=== PATIENT | female | born 1990 | race Caucasian/White ===

== ENCOUNTER 2018-08-07 02:30 | Inpatient (IN) ==
[2018-08-07] MEDS ORDERED: Sod Chloride 0.9% Inj 1,000 ML IV.SIG SCH (03:30)
--- NOTE | 2018-08-07 03:30 | ED ---
HPI General Chief Complaint: Psychiatric Symptoms Stated Complaint: Medical Time Seen by Provider: 08/07/18 03:11 Source: EMS Mode of arrival: EMS Limitations: no limitations History of Present Illness HPI Narrative: 27-year-old female presents to the emergency department by EMS transport with law enforcement Vasquez act after drinking alcohol and intentionally taking 15-20 Lorazepam 0.5 mg tablets prior to arrival to the emergency department. Patient admits she wants to kill herself and was trying to commit suicide. Patient also admits she called her boyfriend who just broken up with her to tell him that she had overdosed on the lorazepam. Patient denies other concerns or complaints. complaint: suicidal ideation and feels depressed Onset (ago): hour(s) Duration: constant History of same: Yes Relieving factors: none Exacerbating factors: alcohol and other (break-up with boyfriend) Context: recent alcohol abuse and not taking psychiatric medications Associated psychiatric symptoms: depression Associated symptoms: denies other symptoms Treatments prior to arrival: none If self harm: admits thoughts of self harm, has plan, has acted on plan and intentional overdose Related Data Home Medications Medication Instructions Recorded Confirmed lorazepam 0.5 mg PO HS 08/07/18 08/07/18 Allergies Allergy/AdvReac Type Severity Reaction Status Date / Time No Known Allergies Allergy Unverified 08/07/18 03:14 Review of Systems ROS: all other systems reviewed are negative PMFSH History History Provided By: Patient and Medical Record Medical History Medical History (Acute) Anxiety (Acute) Social History Social History Substance History: No History of Abuse Smoking Status: Never smoker How Often Do You Have a Drink Containing Alcohol: 2 to 3 times a week Recent Travel in [place] within the Last 8 Weeks: No Recent Out of Country Travel within the Last 8 Weeks: No Exam Narrative Exam Narrative: GENERAL: Well-developed well-nourished female no acute distress no respiratory distress SKIN: Focused skin assessment warm/dry. HEAD: Atraumatic. Normocephalic. EYES: Pupils equal and round. No scleral icterus. No injection or drainage. ENT: No nasal bleeding or discharge. Mucous membranes pink and moist. NECK: Trachea midline. No JVD. CARDIOVASCULAR: Regular rate and rhythm. No murmur appreciated. RESPIRATORY: No accessory muscle use. Clear to auscultation. Breath sounds equal bilaterally. GASTROINTESTINAL: Abdomen soft, non-tender, nondistended. Hepatic and splenic margins not palpable. MUSCULOSKELETAL: No obvious deformities. No clubbing. No cyanosis. No edema. NEUROLOGICAL: Awake and alert. No obvious cranial nerve deficits. Motor grossly within normal limits. Normal speech. PSYCHIATRIC: Appropriate mood and affect; insight and judgment normal. Course Initial Documented Vital Signs Temperature 98.0 F 08/07/18 03:15 Pulse Rate 114 H 08/07/18 03:15 Respiratory Rate 16 08/07/18 03:15 Blood Pressure 112/66 08/07/18 03:15 Pulse Oximetry 98 08/07/18 03:15 Last Documented Vital Signs Temperature 98.0 F 08/07/18 03:15 Pulse Rate 114 H 08/07/18 05:48 Respiratory Rate 16 08/07/18 05:48 Blood Pressure 120/78 08/07/18 05:48 Pulse Oximetry 100 08/07/18 05:48 Medical Decision Making MDM Narrative Medical decision making narrative: 27-year-old female with history of depression and anxiety presents as a law instructor Vasquez act for suicidal ideation admits to being suicidal admits to drinking alcohol and taking all of her remaining lorazepam 0.5 mg that was in a bottle of 30 tablets prescribed as recently as 07/21/18. Patient states she takes lorazepam on an as- needed basis. Patient is followed by a mental health provider and recently discontinued her antidepressant. Patient placed on shelter monitor IV access obtained specimens collections of resulting patient administered 1 L normal saline At 5:27 AM patient is medically cleared for psych screening Medical Screen Exam Complete: Yes Emergency Medical Condition: Yes Differential Diagnosis Differential Diagnosis: Suicidal ideation, polysubstance ingestion, alcohol intoxication, mood disorder, substance-induced mood disorder, exacerbation bipolar disorder, depression Medical Records Medical records reviewed: Yes I reviewed the patient's medical records. Lab Data Lab results reviewed: Yes I reviewed the patient's lab results. Result diagrams: 08/07/18 03:40 08/07/18 03:40 Lab Results 08/07/18 08/07/18 08/07/18 Range/Units 03:40 03:40 03:40 WBC 4.8 (4.0-11.0) th/mm3 RBC 4.62 (4.00-5.30) mil/mm3 Hgb 15.0 (11.6-15.3) gm/dL Hct 43.2 (35.0-46.0) % MCV 93.5 (80.0-100.0) fL MCH 32.4 (27.0-34.0) pg MCHC 34.7 (32.0-36.0) % RDW 12.9 (11.6-17.2) % Plt Count 231 (150-450) th/mm3 MPV 8.6 (7.0-11.0) fL Neut % (Auto) 55.5 (16.0-70.0) % Lymph % (Auto) 31.4 (9.0-44.0) % [place] % (Auto) 11.6 H (0.0-8.0) % Eos % (Auto) 0.6 (0.0-4.0) % Baso % (Auto) 0.9 (0.0-2.0) % Neut # (Auto) 2.7 (1.8-7.7) th/mm3 Lymph # (Auto) 1.5 (1.0-4.8) th/mm3 [place] # (Auto) 0.6 (0.0-0.9) th/mm3 Eos # (Auto) 0.0 (0.0-0.4) th/mm3 Baso # (Auto) 0.0 (0.0-0.2) th/mm3 WBC Differential . Differential Comment Auto diff final Sodium 144 (136-145) meq/L Potassium 3.8 (3.5-5.1) meq/L Chloride 110 H (98-107) meq/L Carbon Dioxide 24.7 (21.0-32.0) meq/L Anion Gap 9 (5-15) meq/L BUN 2 L (7-18) mg/dL Creatinine 0.68 (0.50-1.00) mg/dL Estimated GFR Greater than 89 (>89) mL/min Random Glucose 83 (74-106) mg/dL Calcium 8.3 L (8.5-10.1) mg/dL Total Bilirubin 0.4 (0.2-1.0) mg/dL AST 17 (15-37) U/L ALT 15 (10-53) U/L Alkaline Phosphatase 59 (45-117) U/L Total Protein 6.7 (6.4-8.2) g/dL Albumin 3.8 (3.4-5.0) g/dL TSH 2.380 (0.358-3.740) uIU/mL Salicylates 1.9 L (2.8-20.0) mg/dL Acetaminophen Less than 2.0 L (10.0-30.0) mcg/mL Serum Alcohol 189 H (0-5) mg/dL Imaging Data Radiologist's impression: Chest X-Ray 08/07/18 03:27 CONCLUSION: 1. No acute cardiopulmonary disease. ECG Data EKG Prior to Arrival: No Attestation: I personally reviewed and interpreted this ECG as follows: Prior ECG tracings: not available for review Interpretation: EKG: Sinus tachycardia rate [address] elevation injury pattern or ectopy noted Discharge Plan Discharge Disposition Patient Disposition: 30 Still Patient Discharge Condition Condition: Stable Discharge Details Diagnosis: Suicidal ideation, Depression Physicians Team ED Provider: Vivienne Rodriguez Primary Care Provider: Primary Care Melia Flores Rxs /Orders / Referrals /Forms Prescriptions: No Action lorazepam 0.5 mg Tablet 0.5 mg PO HS RF: 0 Status ED Status: Medically Cleared
[2018-08-07 03:45] LABS: Baso % (Auto) 0.9 % (0.0-2.0); Eos % (Auto) 0.6 % (0.0-4.0); Hematocrit 43.2 % (35.0-46.0); Lymph # (Auto) 1.5 th/mm3 (1.0-4.8); Lymph % (Auto) 31.4 % (9.0-44.0); Mean Corpuscular HGB Conc 34.7 % (32.0-36.0); Mean Corpuscular Hemoglobin 32.4 pg (27.0-34.0); Mean Corpuscular Volume 93.5 fL (80.0-100.0); Mean Platelet Volume 8.6 fL (7.0-11.0); Mono # (Auto) 0.6 th/mm3 (0.0-0.9); Mono % (Auto) 11.6 % (0.0-8.0); Neut # (Auto) 2.7 th/mm3 (1.8-7.7); Neut % (Auto) 55.5 % (16.0-70.0); Platelet Count 231 th/mm3 (150-450); Red Blood Count 4.62 mil/mm3 (4.00-5.30); Red Cell Distribution Width 12.9 % (11.6-17.2); White Blood Count 4.8 th/mm3 (4.0-11.0)
--- NOTE | 2018-08-07 04:09 | XR ---
EXAM DATE: 08/07/2018 3:51 AM EDT AGE/SEX: 27 years / Female INDICATIONS: Infiltrate. CLINICAL DATA: This is the patient's initial encounter. Patient reports that signs and symptoms have been present for 1 day and indicates a pain score of 4/10. MEDICAL/SURGICAL HISTORY: None. . Intestinal surgery. COMPARISON: No prior exams available for comparison. FINDINGS: A single AP view of the chest demonstrates the lungs to be symmetrically aerated without evidence of mass, infiltrate or effusion. The cardiomediastinal contours are unremarkable. Osseous structures a re intact. CONCLUSION: 1. No acute cardiopulmonary disease. Electronically signed by: Pedro Luis Casas MD 08/07/2018 4:07 AM EDT
[2018-08-07 04:14] LABS: Alanine Aminotransferase 15 U/L (10-53); Albumin 3.8 g/dL (3.4-5.0); Anion Gap 9 meq/L (5-15); Aspartate Aminotransferase 17 U/L (15-37); Blood Urea Nitrogen 2 mg/dL (7-18); Calcium 8.3 mg/dL (8.5-10.1); Carbon Dioxide 24.7 meq/L (21.0-32.0); Chloride 110 meq/L (98-107); Glomerular Filtration Rate Greater Than 89 mL/min (>89); Glucose,Random 83 mg/dL (74-106); Sodium 144 meq/L (136-145)
[2018-08-07 04:17] LABS: Alcohol 189 mg/dL (0-5); Potassium 3.8 meq/L (3.5-5.1)
[2018-08-07 04:19] LABS: Alkaline Phosphatase 59 U/L (45-117); Total Protein 6.7 g/dL (6.4-8.2)
[2018-08-07 08:45] LABS: Bacteria,Urine Rare /hpf; Bilirubin,Urine Negative (Negative); Clarity,Urine Clear (Clear); Color,Urine Straw (Yellw/Straw); Glucose,Urine (UA) Negative (Negative); Leukocyte Esterase,Urine Negative (Negative); Mucus,Urine Few /lpf (Occasional); Nitrite,Urine Negative (Negative); Specific Gravity,Urine 1.004 (1.002-1.035); Squamous Epithelial Cell,Urine <1 /hpf (0-5)
[2018-08-07 08:49] LABS: Amphetamine Screen,Urine Neg (Neg); Barbiturate Screen,Urine Neg (Neg); Cannabinoid Screen,Urine Neg (Neg); Cocaine Screen,Urine Neg (Neg)
[2018-08-07 08:50] LABS: Opiate Screen,Urine Neg (Neg)
[2018-08-07] MEDS ORDERED: Aluminum/Magnesium/Simethacone Susp 30 ML UDC PO PRN (09:58)
[2018-08-07] MEDS ORDERED: Acetaminophen 325 MG Tablet PO PRN (09:58)
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
--- NOTE | 2018-08-07 11:59 | ECG ---
Date Performed: 08/07/2018 Time Performed: 04:07:01 PTAGE: 27 years EKG: SINUS TACHYCARDIA ABNORMAL RHYTHM ECG WARNING: DATA QUALITY MAY AFFECT INTERPRETATION NO PREVIOUS TRACING DOCTOR: Benita Campos Interpretating Date/Time 08/07/2018 11:56:15
--- NOTE | 2018-08-07 14:51 | P.CONIM ---
History of Present Illness Service: Hospitalist Consult date: 08/07/18 Requesting Physician: Scott Frey Reason for Consult: Medical management, benzo overdose Primary Care Provider: No Primary Care Physician History of Present Illness: 27-year-old female with history of depression admitted to [facility] under Vasquez Act after intentionally overdosing on Ativan. Her fianc who is present at the bedside reports that the patient came to him yesterday evening around 12:30 AM altered and lethargic saying what she had done. He called 911 she was subsequently brought to [place]. The patient is unaware of how many Ativan she took; she states "however many was left in the bottle." She does not know how many pills have been prescribed in the first place. She reports she also drank some alcohol and was intentionally trying to kill herself. She states since having a miscarriage a few weeks ago she has been very depressed and yesterday evening she had an argument with her fianc which put her over the edge. She she admits to one other prior suicide attempt in her early 20s after another miscarriage. 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 She has never sought outpatient treatment for evaluation of frequent miscarriages. Presently during my evaluation, she is ambulatory and eating lunch. She is alert and oriented x 3. Her vitals are stable aside from tachycardia. Her labs are unremarkable aside from an elevated EtOH level. She reports she just wants to go home and get better. She denies headache, chest pain, shortness of breath , abdominal pain, nausea, vomiting, or confusion, though she admits to not recalling much after she took the Ativan. She thought she may have passed out but her fiance states she never lost consciousness. She denies tobacco or recreational drug use. She admits to social drinking but states she does not drink daily. She endorses a history of depression in her parents. She has taken Prozac in the past but reportedly it made her worse. Review of Systems All other systems reviewed negative except as stated in HPI PMFSH - History History Provided By: Patient, Medical Record - Medical History Medical History: Medical History (Last Reviewed 08/07/18 @ 14:41 by Vane Naik MD) Anxiety - Surgical History Surgical History: Surgical History (Last Updated 08/07/18 @ 14:42 by Vane Naik MD) H/O resection of small bowel - Family History Family History: Family History (Last Updated 08/07/18 @ 14:42 by Vane Naik MD) Mother Depression - Social History I have reviewed the patient's Social History: Yes - Tobacco History Second Hand Smoke Exposure: No Smoking Status: Never smoker - Alcohol History How Often Do You Have a Drink Containing Alcohol: 2 to 3 times a week - Substance Use History Substance History: No History of Abuse - Travel History Recent Travel in the [place] Within the Last 8 Weeks: No Recent Travel Out of the Country Within the Last 8 Weeks: No - Immunization History Tetanus Immunization: >5 Years Hx Influenza Vaccine This Season: No Medications and Allergies Active Medications: Active Medications Acetaminophen (Tylenol) 650 mg PO Q4H PRN PRN Reason: Pain 1-5 or Temp >101F Al Hydrox/Mg Hydrox/Simethicone (Mag-Al Plus Susp Liq) 30 ml PO Q6H PRN PRN Reason: DYSPEPSIA Al Hydroxide/Mg Hydroxide (Milk Of Magnesia Liq) 30 ml PO Q12H PRN PRN Reason: Mild Constipation Hydroxyzine HCl (Atarax) 25 mg PO Q6H PRN PRN Reason: ANXIETY Sodium Chloride (Ns Inj) 1,000 mls @ 0 mls/hr IV.SIG BOLUS JANA Lurasidone HCl (Latuda) 40 mg PO DAILY@17 JANA Melatonin (Melatonin) 5 mg PO HS PRN PRN Reason: INSOMNIA Nicotine (Habitrol 21 Mg Patch.24 Hr) 1 patch T-DERMAL DAILY PRN PRN Reason: Nicotine craving Patch Removal (Remove Old Patch) 1 each T-DERMAL DAILY JANA Allergies Allergy/AdvReac Type Severity Reaction Status Date / Time No Known Allergies Allergy Unverified 08/07/18 03:14 Home Medications Medication Instructions Recorded Confirmed Type lorazepam 0.5 mg PO HS 08/07/18 08/07/18 History Exam Vital signs: Vital Signs 08/07/18 03:15 08/07/18 05:48 Temperature 98.0 F Pulse Rate 114 H 114 H Respiratory Rate 16 16 Blood Pressure 112/66 120/78 Pulse Oximetry 98 100 Intake & Output 08/06/18 08/07/18 08/07/18 18:59 06:59 18:59 Weight 77.111 kg Narrative: GENERAL: WN, WD female sitting up in chair eating lunch. SKIN: Warm and dry. HEENT: AT/NC. Pupils equal and round. MMM. HEART: Tachycardic without m/r/g. LUNGS: CTAB without wheezes or crackles. ABDOMEN: +BS, soft, NT, ND. EXTREMITIES: No LE edema. 2+ pedal pulses. NEURO: Awake and alert. Nonfocal. Results - Labs CBC & Chem 7: 08/07/18 03:40 08/07/18 03:40 Labs: Laboratory Results - last 24 hr 08/07/18 08/07/18 08/07/18 03:40 03:40 03:40 WBC 4.8 RBC 4.62 Hgb 15.0 Hct 43.2 MCV 93.5 MCH 32.4 MCHC 34.7 RDW 12.9 Plt Count 231 MPV 8.6 Neut % (Auto) 55.5 Lymph % (Auto) 31.4 [place] % (Auto) 11.6 H Eos % (Auto) 0.6 Baso % (Auto) 0.9 Neut # (Auto) 2.7 Lymph # (Auto) 1.5 [place] # (Auto) 0.6 Eos # (Auto) 0.0 Baso # (Auto) 0.0 WBC Differential . Differential Comment Auto diff final Sodium 144 Potassium 3.8 Chloride 110 H Carbon Dioxide 24.7 Anion Gap 9 BUN 2 L Creatinine 0.68 Estimated GFR Greater than 89 Random Glucose 83 Calcium 8.3 L Total Bilirubin 0.4 AST 17 ALT 15 Alkaline Phosphatase 59 Total Protein 6.7 Albumin 3.8 TSH 2.380 Urine Color Urine Clarity Urine pH Ur Specific [place] Urine Protein Urine Glucose (UA) Urine Ketones Urine Occult Blood Urine Nitrate Urine Bilirubin Urine Urobilinogen Ur Leukocyte Esterase Urine RBC Urine WBC Ur Squamous Epith Cells Urine Bacteria Urine Mucus Micro UA Comment Ur Microscopic Review Urine Culture Comments Salicylates 1.9 L Urine Opiates Screen Acetaminophen Less than 2.0 L Ur Barbiturates Screen Ur Amphetamines Screen U Benzodiazepines Scrn Urine Cocaine Screen U Cannabinoids Screen Serum Alcohol 189 H 08/07/18 08/07/18 08:28 08:28 WBC RBC Hgb Hct MCV MCH MCHC RDW Plt Count MPV Neut % (Auto) Lymph % (Auto) [place] % (Auto) Eos % (Auto) Baso % (Auto) Neut # (Auto) Lymph # (Auto) [place] # (Auto) Eos # (Auto) Baso # (Auto) WBC Differential Differential Comment Sodium Potassium Chloride Carbon Dioxide Anion Gap BUN Creatinine Estimated GFR Random Glucose Calcium Total Bilirubin AST ALT Alkaline Phosphatase Total Protein Albumin TSH Urine Color Straw Urine Clarity Clear Urine pH 7.0 Ur Specific [place] 1.004 Urine Protein Negative Urine Glucose (UA) Negative Urine Ketones Negative Urine Occult Blood Negative Urine Nitrate Negative Urine Bilirubin Negative Urine Urobilinogen Less than 2 Ur Leukocyte Esterase Negative Urine RBC 1 Urine WBC 2 Ur Squamous Epith Cells <1 Urine Bacteria Rare H Urine Mucus Few H Micro UA Comment Culture not ind Ur Microscopic Review Not Reportable Urine Culture Comments Culture not ind Salicylates Urine Opiates Screen Neg Acetaminophen Ur Barbiturates Screen Neg Ur Amphetamines Screen Neg U Benzodiazepines Scrn Neg Urine Cocaine Screen Neg U Cannabinoids Screen Neg Serum Alcohol - Imaging Impressions Chest X-Ray 08/07/18 03:27 CONCLUSION: 1. No acute cardiopulmonary disease. Assessment and Plan - Assessment (1) Benzodiazepine (tranquilizer) overdose Code(s): T42.4X1A - Poisoning by benzodiazepines, accidental (unintentional), initial encounter Status: Acute (2) Suicide attempt Code(s): T14.91XA - Suicide attempt, initial encounter Status: Acute - Plan 27-year-old female with history of depression admitted to med psych under Vasquez Act after intentionally overdosing on Ativan with concomitant EtOH ingestion. 1. Benzodiazepine overdose - UDS negative - EtOH level elevated - Vital signs stable except for tachycardia - No BRANCH MANAGER TRAINEE or respiratory depression - Labs unremarkable - Pt ambulatory - Supportive care 2. Suicide attempt, depression - Management per psych 3. Frequent miscarriages - Pt may benefit from OP RIGHT OF WAY MANAGER f/u for further eval The patient has been monitored close to ten hours without any complications. She may be safely discharged to inpatient psychiatry. DVT prophylaxis: ambulatory Code Status: Full Discussed Condition With: The patient and her fiance
[2018-08-07] MEDS ORDERED: LORazepam 1 MG Tablet PO PRN (16:50)
--- NOTE | 2018-08-07 19:20 | P.PNPSY ---
Subjective Chief Complaint: Overdose Remarks: This is a request for second opinion. Admission note was reviewed and I agree with the history. Patient was seen and case was discussed with nursing. Patient is pleasant and cooperative with exam. H&P was reviewed and case was discussed with nursing and family in the room. CIWA was negative. Patient is regretful of her actions. She remains depressed but denies suicidal or homicidal ideation intent or plan. Family admits that patient has not made any suicidal statements to them. They are comforting her and asking about visitation hours. We discussed patient's poor reaction to Prozac. Mental Status Examination Appearance: Appropriate Consciousness: Other (Slightly groggy) Orientation: Person, Place (At least), Date/Time Motor Activity: Normal gait Speech: Unremarkable Language: Adequate Fund of Knowledge: Adequate Attention and Concentration: Adequate Memory: Unremarkable (Grossly intact on clinical exam) Mood: Sad, Other (Depressed) Affect: Blunt Thought Process & Associations: Intact Thought Content: Appropriate Hallucination Type: None Delusion Type: None Suicidal Ideation: No (Unreliable to contract for safety) Suicidal Plan: No Suicidal Intention: No Homicidal Ideation: No Homicidal Plan: No Homicidal Intention: No Insight: Fair Judgment: Impulsive Assessment and Plan - Assessment (1) Bipolar disorder, current episode depressed, severe, without psychotic features Code(s): F31.4 - Bipolar disorder, current episode depressed, severe, without psychotic features Status: Acute - Plan Plan: I agree with the first opinion to continue petition. Criteria include suicide attempt Justification for Continued Inpatient Stay: Patient would decompensate in a less restrictive setting Request Healthcare Surrogate/Guardian Advocate?: No
[2018-08-07] MEDS: Melatonin 5 MG Tablet PO PRN (21:36)
[2018-08-08 08:48] LABS: Chol/HDL Ratio 1.45 Ratio; HDL Cholesterol 74.3 mg/dL (40.0-60.0)
[2018-08-08] MEDS: Multivitamin/Minerals Therapeutic Tablet PO SCH (09:27)
[2018-08-08] MEDS: Folic Acid 1 MG Tablet PO SCH (09:27)
--- NOTE | 2018-08-08 10:09 | P.PNIM ---
Subjective Interval history: Pt seen and examined for f/u of intentional benzo OD. She is feeling well. No complaints. VSS. Ambulating and tolerating PO. Physical Exam Vital signs: Vital Signs 08/07/18 11:36 08/07/18 17:52 08/07/18 17:57 Temperature 98.5 F 97.7 F 97.7 F Pulse Rate 108 H 110 H 110 H Respiratory Rate 16 16 18 Blood Pressure 108/58 L 109/56 L 109/56 L Pulse Oximetry 99 99 99 08/08/18 06:00 Temperature 97.9 F Pulse Rate 69 Respiratory Rate 15 Blood Pressure 96/55 L Pulse Oximetry 100 Intake & Output 08/07/18 08/08/18 08/08/18 18:59 06:59 18:59 Intake Total 240 / 240 340 / 340 120 / 120 Balance 240 / 240 340 / 340 120 / 120 Intake: Oral 240 / 240 240 / 240 120 / 120 Oral Supplement 100 / 100 Other: # Voids 1 Narrative: GENERAL: WN, WD female resting in bed in NAD. SKIN: Warm and dry. HEENT: AT/NC. Pupils equal and round. MMM. HEART: RRR no m/r/g. LUNGS: CTAB without wheezes or crackles. ABDOMEN: +BS, soft, NT, ND. EXTREMITIES: No LE edema. NEURO: Awake and alert. Results - Labs CBC & Chem 7: 08/07/18 03:40 08/07/18 03:40 Laboratory Results - last 24 hr 08/08/18 08:03 Triglycerides 44 Cholesterol 108 L LDL Cholesterol, Calc 25 HDL Cholesterol 74.3 H Cholesterol/HDL Ratio 1.45 Assessment and Plan - Assessment (1) Benzodiazepine (tranquilizer) overdose Code(s): T42.4X1A - Poisoning by benzodiazepines, accidental (unintentional), initial encounter Status: Acute (2) Suicide attempt Code(s): T14.91XA - Suicide attempt, initial encounter Status: Acute - Plan 27-year-old female with history of depression admitted to med psych under Vasquez Act after intentionally overdosing on Ativan with concomitant EtOH ingestion. Patient has been monitored for >24 hours following benzo OD. She is medically stable. I will sign off at this time and patient can be discharged to inpatient psychiatry. 1. Benzodiazepine overdose - UDS negative - EtOH level elevated - Vital signs stable - No HANDS PARTER or respiratory depression - Labs unremarkable - Pt ambulatory - Supportive care 2. Suicide attempt, depression - Management per psych 3. Frequent miscarriages - Pt may benefit from OP BURGLAR ALARM INSPECTOR f/u for further eval DVT prophylaxis: ambulatory Discussed Condition With: Patient
[2018-08-08 13:40] LABS: Hemoglobin A1c 4.4 % (4.3-6.0)
--- NOTE | 2018-08-08 14:56 | P.PNPSY ---
Subjective Chief Complaint: Overdose Remarks: Patient was seen and case discussed with nursing. I met with patient and her parents again. Parents and patient notes a brighter affect. Patient was observed smiling and laughing with them. She is eating and sleeping well. He says her mood has greatly improved and she denies suicidal or homicidal ideation intent or plan. She is perseverative on discharge Mental Status Examination Appearance: Appropriate Consciousness: Other (Slightly groggy) Orientation: Person, Place (At least), Date/Time Motor Activity: Normal gait Speech: Unremarkable Language: Adequate Fund of Knowledge: Adequate Attention and Concentration: Adequate Memory: Unremarkable (Grossly intact on clinical exam) Mood: Appropriate Affect: Appropriate Thought Process & Associations: Intact Thought Content: Appropriate Hallucination Type: None Delusion Type: None Suicidal Ideation: No (Unreliable to contract for safety) Suicidal Plan: No Suicidal Intention: No Homicidal Ideation: No Homicidal Plan: No Homicidal Intention: No Insight: Fair Judgment: Impulsive Assessment and Plan - Assessment (1) Bipolar disorder, current episode depressed, severe, without psychotic features Code(s): F31.4 - Bipolar disorder, current episode depressed, severe, without psychotic features Status: Acute - Plan Plan: Continue current treatment plan Justification for Continued Inpatient Stay: Patient would decompensate in a less restrictive setting Request Healthcare Surrogate/Guardian Advocate?: No
[2018-08-08] MEDS: Melatonin 5 MG Tablet PO PRN (21:14)
[2018-08-09 06:02] VITALS: BP 105/61; PULSE 71; RESP 16; TEMP 97.4; O2SAT 94
[2018-08-09] MEDS: Folic Acid 1 MG Tablet PO SCH (10:04)
[2018-08-09] MEDS: Multivitamin/Minerals Therapeutic Tablet PO SCH (10:04)
--- NOTE | 2018-08-09 15:59 | P.DSPSY ---
Psychiatry Discharge Summary Inpatient Psychiatric care?: Yes Advance Directives: No Mental Health Advance Directive: No Health Care Proxy: No - Admission Admission Date: August 07, 2018 10:03 - Admission Diagnosis (1) Bipolar disorder, current episode depressed, severe, without psychotic features Code(s): F31.4 - Bipolar disorder, current episode depressed, severe, without psychotic features Brief History: Ms. Lyle is a 27-year-old female with a reported history of depression who presents under a Vasquez act by [facility]'s office alleging that the patient overdosed on 20 Ativan because of distress at recent . Reviewing the electronic medical record, I see no previous psychiatric contact within our system. Patient seen and examined. Chart reviewed. Case discussed with nursing staff. On my examination today, the patient reports that she made her overdose because "my fiance was really mean to me for the first time." She says that she waited for her fianc to leave and then took the Ativan. She does admit to feeling increasingly depressed since she had an 2 months ago. In addition to low mood, the patient reports hopeless and worthless feelings, poor sleep and poor appetite. She says that she feels alone. She denies any ongoing suicidal ideation at this time but is not particularly pleased to have survived her overdose. The patient does report a history of antidepressant treatment with Prozac but says that it made her feel worse. She does describe a history of possible hypomania or even kaity about a year and a half ago where she felt "unstoppable" and "everything made me happy." She said that this elevated mood state lasted for several months. No hypomanic or manic symptoms presently. No audiovisual hallucinations. I can elicit no delusional material. Cluster B personality traits noted. The remainder of the psychiatric ROS is negative. The patient is requesting discharge from the ED today. Tobacco Use In Past 30 Days: No How Often Do You Have a Drink Containing Alcohol: 2 to 3 times a week Hospital Course: Patient was admitted to a locked, inpatient psychiatric unit. A general medical consultation was obtained. Patient had no lingering sequelae from her presenting benzodiazepine overdose. Appropriate precautions were in place throughout patient's hospital stay. Patient was seen and examined on the unit by psychiatry and also visited by counselor. Psychotropic medications were adjusted. Patient tolerated medication changes well without side effects. Patient had improvement in presenting psychiatric symptomatology during the course of her hospital stay. There was no evidence of any suicidality or homicidality on the inpatient unit. There was no evidence of self-care deficit. Counselor has obtained reassuring collateral information on the day of discharge from the patient's significant other. On the day of discharge: Patient seen and examined with nurse. Chart reviewed. Case discussed with nursing staff. Per nursing staff, patient has been cheerful with a bright affect. She has presented no behavioral problem on the inpatient unit. Case discussed with counselor. On my examination today, the patient is requesting discharge from the inpatient psychiatric unit today. She denies any suicidal or homicidal ideation, intent or plan. She reports that she wants to live to get soon and also to travel. She is in particular looking forward to returning to [facility]. Mood is reportedly much improved versus admission, and I can elicit no severe depressive or hypomanic/manic symptoms. She does say that she struggles somewhat chronically with mild mood instability, and we discuss titrating Latuda to 60 mg with dinner on discharge to target this issue. She denies any audiovisual hallucinations. I can elicit no delusional material. She denies any side effects from medications. No physical complaints. Suicide and violence risk assessment on day of discharge both suggest lower imminent risk from mental illness and the patient's level of function is adequate for outpatient care. There are no acute risk factors: No current suicidal or homicidal ideation, no severe depressive symptoms, no impairment in reality construction, no substance intoxication. We will bolster patient's protective factors by referring her for outpatient mental health services. Counselor has also instructed patient's to secure the home environment of potential means of harm to self/others. I did suggest to the patient that she might consider remaining longer for further observation on the inpatient unit, but she does desire to leave today and cannot be said to meet criteria for ongoing involuntary psychiatric hospitalization at this time. I will therefore discharge the patient home today with psychiatric follow-up as arranged by counselor. Patient is also to follow up with primary care and with gynecology. I have counseled the patient to return to the psychiatric emergency room for any concerning symptoms as part of a general safety plan. With the benefit of observation on the unit, it is my suspicion that the patient 's presenting dysphoria was more related to an adjustment reaction, now resolved. I do suspect an underlying bipolar disorder, recently depressed, but it appears that the severity of this bipolar depression was much milder than I had initially believed. I did consider whether the patient was 'playing good' to facilitate mackenzie discharge, but based on my clinical interaction with the patient, it seems more likely that presenting adjustment reaction has resolved and she is feeling genuinely improved. - Discharge Discharge Date: 08/09/18 - Discharge Diagnosis (1) Adjustment disorder with mixed disturbance of emotions and conduct Diagnosis: Principal (resolved) Code(s): F43.25 - Adjustment disorder with mixed disturbance of emotions and conduct Status: Resolved (2) Bipolar disorder, in partial remission, most recent episode depressed Diagnosis: Secondary Code(s): F31.75 - Bipolar disorder, in partial remission, most recent episode depressed Status: Chronic Discharge Disposition: Home - Discharge Instructions Discharge Diet: Regular Diet Activities You Can Perform: Weight Bearing As Tolerat - Discharge Time > 30 minutes Mental Status Examination Appearance: Appropriate, Well dressed/well groomed Consciousness: Alert Orientation: x4 Motor Activity: Normal gait, Other (No hand tremor, no dystonia, no dyskinesia, no other motor abnormalities noted. No signs of withdrawal noted.) Speech: Unremarkable Language: Adequate Fund of Knowledge: Adequate Attention and Concentration: Adequate Memory: Unremarkable (Grossly intact on clinical exam) Mood: Appropriate Affect: Appropriate, Euthymic Thought Process & Associations: Intact, Logical, Goal directed, Linear Thought Content: Appropriate Hallucination Type: None Delusion Type: None Suicidal Ideation: No Suicidal Plan: No Suicidal Intention: No Homicidal Ideation: No Homicidal Plan: No Homicidal Intention: No Mental Status Exam Remarks: Insight and judgment are fair Discharge/Advance Care Plan - Results Vital Signs: Last Vital Signs Temp 97.4 F L 08/09/18 06:00 Pulse 71 08/09/18 06:00 Resp 16 08/09/18 06:00 BP 105/61 08/09/18 06:00 Pulse Ox 94 L 08/09/18 06:00 Lab Results: Laboratory Results Hemoglobin A1c 4.4 % (4.3-6.0) 08/08/18 08:03 Triglycerides 44 mg/dL (42-150) 08/08/18 08:03 Cholesterol 108 mg/dL (120-200) L 08/08/18 08:03 LDL Cholesterol, Calc 25 mg/dL (0-99) 08/08/18 08:03 HDL Cholesterol 74.3 mg/dL (40.0-60.0) H 08/08/18 08:03 TSH 2.380 uIU/mL (0.358-3.740) 08/07/18 03:40 Urine Culture Comments Culture not ind 08/07/18 08:28 Summary of Procedures: None done. Imaging: ITS Impressions Chest X-Ray 08/07/18 03:27 CONCLUSION: 1. No acute cardiopulmonary disease. Pending Results: None - Medications Number of antipsychotic medications at discharge: 1 - Discharge Care Plan Goals to Promote Your Health: * To prevent worsening of your condition and complications * To maintain your health at the optimal level Directions to Meet Your Goals: Take your medications as prescribed Follow your dietary instruction Follow activity as directed Keep your appointments as scheduled Take your immunizations and boosters as scheduled If your symptoms worsen call your PCP, if no PCP go to Urgent Care Center or Emergency Room For 15/06 questions related to your inpatient stay or results of tests pending at discharge, please contact Dr. Scott Frey MD at Smoking is Dangerous to Your Health. Avoid second hand smoking
== END 2018-08-09 18:25 | disposition home or self-care (01) ==
LOC: NEPC 02:30 → NEDA 10:03 → H4EA 12:25 → H260 08-08 18:13
PROVIDERS: ADMIT Psychiatry & Neurology Psychiatry; ATTEND Psychiatry & Neurology Psychiatry